=== PATIENT | male | born 1970 | race Caucasian/White ===

== ENCOUNTER → 2020-01-03 10:20 | Outpatient (CLI) | payer BC, SELFPAY ==
[2020-01-03 13:40] LABS: Coronavirus 19 IgG Antibody Negative (Negative); Coronavirus 19 IgM Antibody Negative (Negative)
== END ==
PROVIDERS: Visit Provider Internal Medicine Gastroenterology
DX: Z01.818 Encounter for other preprocedural examination (principal)
CPT/HCPCS: 36415; 86328

== ENCOUNTER 2020-01-06 11:57 | Day surgery (SDC) | payer BC, SELFPAY ==
[2020-01-01 11:34] VITALS: BMI 29.5
[2020-01-06] VITALS (8 sets, daily range): BP systolic 115–152; BP diastolic 87–98; PULSE 57–94; RESP 16–18; TEMP 36.6; O2SAT 93–97
[2020-01-06 12:26] LABS: POC Glucose,Bedside 93 (70-110)
--- NOTE | 2020-01-06 12:43 | [facility].PROC ---
[facility] Procedure Note Procedure Note:: ERCP procedure Report: Endoscopic retrograde cholangiopancreatography with biliary sphincterotomy and balloon extraction Endoscopist: John Landeros II, MD Referring Physician: Carline Marie MD Date of Procedure: January 06, 2020 Equipment: Olympus 180 side viewing endoscope duodenoscope Sedation: MAC sedation Indication: Mr. Jones is a 49-year-old gentleman with dyspepsia. He has a history of Georges. The patient has had some periumbilical abdominal discomfort, nausea and vomiting. He has lost some weight. He did go to the emergency department at the [facility]. His lab work showed AST 136 and ALT 116 with mildly elevated alkaline phosphatase. The patient was having moderate belching, bloating, early satiety and nausea. The patient previously had some extraparametal side effects with Reglan. He did have CT scan of the abdomen and pelvis on December 03, 2019 and there was no acute intra-abdominal process. The gallbladder appeared distended. The patient did have a HIDA scan on December 24, 2019 that showed a gallbladder ejection fraction of 88% and the biliary tree and small bowel were visualized and 18 minutes of the study. The patient did have lab work showing normal CBC. His repeat transaminases showed ALT 107 with alkaline phosphatase 80 and total bilirubin 0.7. His CA-19-9 was slightly elevated at 38. His amylase 103 and lipase 54 were normal. ERCP is performed to rule out sphincter of Oddi dysfunction. He does report some left-sided abdominal discomfort today but does get some right upper abdominal discomfort. He does have irregular bowel function with constipation that alternates with diarrhea. Procedure: Prior to the procedure, a history and physical exam was performed, and patient's medications and allergies were reviewed. The risks, benefits and alternatives of the sedation and procedure were discussed with the patient. All questions were answered and informed consent was obtained. The patient was brought to the fluoroscopic radiology room. Patient identification and proposed procedure were verified by the physician and the nurse. The patient was placed in a swimmer's position between left lateral decubitus and prone position and the scope was passed under direct vision. Throughout the procedure, the patient's blood pressure, pulse, and oxygen saturations were monitored continuously. The ERCP was accomplished without difficulty. The patient tolerated the procedure well. Findings: The side-viewing duodenal scope was passed directly into the upper esophagus and advanced to the second portion of the duodenum. There was some mild esophageal reflux changes and very small esophageal varices. There was mild reactive gastropathy of the antrum of the stomach. The duodenum was normal. The ampulla was well visualized. The common bile duct was selectively cannulated. The cholangiogram did show a 5 to 6 mm common bile duct (normal size) with normal filling of the intrahepatic biliary system. There was normal filling of the cystic duct and gallbladder that was mildly distended. There was poor and delayed drainage of bile and contrast from the biliary system with smooth tapering at the ampulla/sphincter of Oddi and this was most suggestive of sphincter of Oddi dysfunction. A biliary sphincterotomy was performed. There was drainage of a small amount of bile and sludge (minor choledocholithiasis). A 9 mm sweeping balloon was inflated partially and swept through the biliary system from the hilum with the passage of bile and a small amount of sludge. There was excellent decompression of the biliary system. The pancreatic duct was not cannulated intentionally. Impression: 1. 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 The p
--- NOTE | 2020-01-06 13:00 | FL_ITS ---
PROCEDURE: FL ERCP CLINICAL INDICATION: nausea and vomiting, abdominal pain COMPARISON: No exams were available for comparison FINDINGS: Fluoroscopy time: 1 minutes and 46 seconds Select images submitted of the ERCP show contrast injected into the common bile duct which does not appear dilated. No internal filling defects evident. Images submitted partial filling of the gallbladder noted. Incomplete filling of the biliary radicles. Pancreatic duct was not cannulated IMPRESSION: Unremarkable limited ERCP Dictated by: Rico Torres MD 01/09/2020 10:29 Electronically signed by Rico Torres MD in [place] 01/09/2020 10:29
== END 2020-01-06 14:04 | disposition home or self-care (01) ==
LOC: OUTP 12:02
PROVIDERS: PCP Family Medicine; Visit Provider Internal Medicine Gastroenterology
PROC: (CPT 43262; principal; 2020-01-06 13:30)
DX: K80.50 Calculus of bile duct without cholangitis or cholecystitis without obstruction (principal); K83.8 Other specified diseases of biliary tract; K58.1 Irritable bowel syndrome with constipation; Z87.19 Personal history of other diseases of the digestive system; I10 Essential (primary) hypertension; E11.9 Type 2 diabetes mellitus without complications; J45.909 Unspecified asthma, uncomplicated; Z88.5 Allergy status to narcotic agent; Z91.013 Allergy to seafood; R10.13 Epigastric pain; R19.5 Other fecal abnormalities; Z79.899 Other long term (current) drug therapy
CPT/HCPCS: 43262; 43264; 74330; 82962